=== PATIENT | male | born 1960 | race Caucasian/White ===

== ENCOUNTER 2016-04-12 12:09 | Emergency (ER) | payer MEDICARE, OTHER ==
[~2016-04-12] VITALS: Ht 162.6 cm; Wt 83.0 kg
[~2016-04-12 12:09] MED LIST: HYDR-3535 PO; XANA1TAB2 PO
[2016-04-12 12:13] VITALS: BP 97/73; PULSE 70; RESP 16; TEMP 97.4; O2SAT 97
[2016-04-12] MEDS ORDERED: CLIN1CAP6 PO (12:59)
--- NOTE | 2016-04-12 13:05 | PD ---
HPI Chief Complaint: Oral / Dental Pain or Problem Time Seen by Provider: 13:00 Travel History International Travel<30 days: No Contact w/Intl Traveler<30days: No Traveled to known affect area: No History of Present Illness HPI Patient is a 55-year-old male presenting with left upper dental pain. He states last evening he was chewing on a candy bar when he felt a sudden pain. It is not believed the tooth broke. Is a small amount of foul tasting discharge since. Denies any bleeding. Denies any subluxation. Denies masses, edema, difficulty swallowing or breathing. Denies fever. No attempts at palliation. PFSH Past Medical History Hx Anticoagulant Therapy: No Asthma: Yes Anxiety: Yes Cardiovascular Problems: Yes (htn on meds) Chemotherapy: No Cerebrovascular Accident: Yes Diabetes: No Diminished Hearing: No Endocrine: No GERD: Yes Hypertension: Yes Musculoskeletal: Yes (BACK INJURY/CHRONIC BACK PAIN) Respiratory: Yes (COPD) Immunizations Current: Yes Influenza Vaccination: No Past Surgical History Hysterectomy: No Other Surgery: Yes (right KNEE) Social History Alcohol Use: No Tobacco Use: No (quit 2014) Substance Use: No Allergies-Medications (Allergen,Severity, Reaction): Coded Allergies: Penicillin (Verified Allergy, Unknown, 04/12/16) Reported Meds & Prescriptions Reported Meds & Active Scripts Active Clindamycin (Clindamycin HCl) 300 Mg Cap 300 Mg PO Q6H 10 Days Reported Xanax (Alprazolam) 1 Mg Tab 1 Mg PO Q6H PRN Review of Systems HENT: Positive: Dental Difficulties, No: Sore Throat, Neck Stiffness, Neck Pain, Gingival Bleeding, Earache Physical Exam Narrative GENERAL: Well-developed and well-nourished adult male in no acute distress. SKIN: Warm and dry. Good turgor without tenting. HEAD: Normocephalic and atraumatic. EYES: PERRL bilaterally, 5mm. EOMI bilaterally. No injection or icterus present. No proptosis. Lids without edema or erythema. ENT: Tooth #2 has some caries but the tooth appears intact. There is some minor dental erythema and tenderness to palpation. No bleeding or purulence seen. No induration or fluctuance. Tooth is tender to percussion. Buccal mucosa pink and moist. Oropharynx free of erythema, tonsillar hypertrophy, masses, swelling, asymmetry and exudates. Uvula midline and airway patent. NECK: Supple, no meningeal signs. Trachea midline, no JVD. No cervical or facial lymphadenopathy. CARDIOVASCULAR: Regular rate and rhythm without murmurs, rubs, clicks or gallops. RESPIRATORY: Clear to auscultation bilaterally with symmetrical rise and fall, no distress or use of accessory muscles. NEUROLOGIC: CN II-XII grossly intact. Awake and alert. Motor grossly within normal limits. Normal speech. PSYCHIATRIC: Appropriate mood and affect; insight and judgment normal. Data Data Last Documented VS Vital Signs Date Time Temp Pulse Resp B/P Pulse Ox O2 Delivery O2 Flow Rate FiO2 04/12/16 12:13 97.4 70 16 97/73 97 MDM Medical Decision Making Medical Screen Exam Complete: Yes Emergency Medical Condition: Yes Differential Diagnosis Caries versus Periapical abscess versus cellulitis versus Tooth Fracture vs less likely Ludwigs Angina Narrative Course Patient is a 55-year-old male presenting with dental pain. Exam there is just erythema does report some bad taste in the mouth this could be early dental infection. The tooth is not subluxed or fracture. The patient has a prescription for prescription drug database for opioid narcotics should last until April 16 he tells me he is out early and asked for a refill. 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 He was given clindamycin for infection and recommended follow-up with dentist on Wednesday.See discharge paperwork for further instructions. The plan was discussed with the patient who acknowledged their understanding and agreement. Reinforced the follow-up with primary care is critically important. Patient instructed on emergent conditions that should prompt return to ED. Diagnosis Primary Impression: Dental infection Patient Instructions: Dental Abscess (ED), General Instructions Additional Instructions: Take medication as directed Use salt water gargles, Orajel, or other OTC products for topical pain relief Apply ice packs hourly as needed to help with swelling and pain Schedule with dentist [facility] for definitive treatment Return to the ED for any acute worsening of symptoms Med/Other Pt SpecificInfo: Prescription(s) given Scripts Clindamycin 300 Mg [id number] Mg PO Q6H 10 Days Prov:Dario Blanca MD 04/12/16 Disposition: 01 DISCHARGE HOME Condition: Stable Sabino Ray III Apr 12, 2016 13:05
== END 2016-04-12 13:11 | disposition home or self-care (01) ==
LOC: PHEFT 12:09
DX: K04.7 Periapical abscess without sinus (principal); I10 Essential (primary) hypertension; J44.9 Chronic obstructive pulmonary disease, unspecified
CPT/HCPCS: 99282

== ENCOUNTER 2016-05-19 10:48 | Emergency (ER) | payer MEDICARE, OTHER ==
[~2016-05-19] VITALS: Ht 165.1 cm; Wt 84.0 kg
[~2016-05-19 10:48] MED LIST changes: +CLIN1CAP6 PO; -HYDR-3535 PO
[2016-05-19 10:55] VITALS: BP 116/82; PULSE 69; RESP 16; TEMP 98.2; O2SAT 96
[2016-05-19] MEDS ORDERED: BACT800T5 PO (11:06)
[2016-05-19] MEDS ORDERED: IBUP-232 PO (11:06)
--- NOTE | 2016-05-19 11:07 | PD ---
HPI Chief Complaint: Skin Problem Time Seen by Provider: 10:59 Travel History International Travel<30 days: No Contact w/Intl Traveler<30days: No Traveled to known affect area: No History of Present Illness HPI Patient is a 55-year-old male who presents to emergency room with complaints of abscess to his right axilla. Patient reports that he was shaving 2 days ago, reports that he began to develop a ingrown hair which turned to infection to his right axilla. Reports that the abscess feels hard this time, reports increased pain to the area. Patient with no fevers or chills, no nausea or vomiting. Patient with no other complaints. Patient reports that tetanus is not up-to-date. PFSH Past Medical History Hx Anticoagulant Therapy: No Asthma: Yes Anxiety: Yes Cardiovascular Problems: Yes (htn on meds) Chemotherapy: No Cerebrovascular Accident: Yes Diabetes: No Diminished Hearing: No Endocrine: No GERD: Yes Hypertension: Yes Musculoskeletal: Yes (BACK INJURY/CHRONIC BACK PAIN) Respiratory: Yes (COPD) Immunizations Current: Yes Tetanus Vaccination: > 5 Years Influenza Vaccination: No Past Surgical History Hysterectomy: No Other Surgery: Yes (right KNEE) Social History Alcohol Use: No Tobacco Use: No (quit 2014) Substance Use: No Allergies-Medications (Allergen,Severity, Reaction): Coded Allergies: Penicillin (Verified Allergy, Unknown, 05/19/16) Reported Meds & Prescriptions Reported Meds & Active Scripts Active Ibuprofen 600 Mg Tab 600 Mg PO Q6H PRN Bactrim DS (Sulfamethoxazole-Trimethoprim) 800-160 Mg Tab 2 Tab PO BID Clindamycin (Clindamycin HCl) 300 Mg Cap 300 Mg PO Q6H 10 Days Reported Xanax (Alprazolam) 1 Mg Tab 1 Mg PO Q6H PRN Review of Systems General / Constitutional: No: Fever, Chills Eyes: No: Visual changes HENT: No: Headaches Cardiovascular: No: Chest Pain or Discomfort Respiratory: No: Shortness of Breath Gastrointestinal: No: Abdominal Pain Genitourinary: No: Dysuria Musculoskeletal: No: Pain Skin: Positive Other (abscess to right axilla), No Rash Neurologic: No: Weakness Psychiatric: No: Depression Endocrine: No: Polydipsia Hematologic/Lymphatic: No: Easy Bruising Physical Exam Narrative GENERAL: No acute distress, nontoxic, well appearing SKIN: Warm and dry. Patient with 0.5cm x 0.5cm non fluctuant abscess to right axilla with no area of fluctuance, no cellulitis, no drainage HEAD: Atraumatic. Normocephalic. ENT: No nasal bleeding or discharge. Mucous membranes pink and moist. NECK: Trachea midline. No JVD. CARDIOVASCULAR: Regular rate and rhythm. No murmur appreciated. RESPIRATORY: No accessory muscle use. Clear to auscultation. Breath sounds equal bilaterally. GASTROINTESTINAL: Abdomen soft, non-tender, nondistended. Hepatic and splenic margins not palpable. MUSCULOSKELETAL: No obvious deformities. No clubbing. No cyanosis. No edema. Data Data Last Documented VS Vital Signs Date Time Temp Pulse Resp B/P Pulse Ox O2 Delivery O2 Flow Rate FiO2 05/19/16 10:55 98.2 69 16 116/82 96 Orders Sulfamet-Trimeth Ds 800-160 Mg (Bactrim (05/19/16 11:15) Tetanus/Diphtheria Tox Adult (Tetanus/Di (05/19/16 11:15) Ibuprofen (Motrin) (05/19/16 11:15) MDM Medical Decision Making Medical Screen Exam Complete: Yes Emergency Medical Condition: Yes Interpretation(s) Vital Signs Date Time Temp Pulse Resp B/P Pulse Ox O2 Delivery O2 Flow Rate FiO2 05/19/16 10:55 98.2 69 16 116/82 96 Differential Diagnosis Abscess, swollen lymph node Narrative Course Patient is a 55-year-old male who presents to emergency room with complaints of abscess to his right axilla. Patient reports that he was shaving his armpits 2 days ago, reports that he noticed that he had a bump to his right arm yesterday. Reports that the "bump" feels harder and "hurts alot." On evaluation , patient has a small abscess to his right axilla, there is no area of induration or fluctuance and there is no drainage or cellulitis. Will treat patient with antibiotics. Understands need to apply warm compresses to abscess to allow it to come to a head. Tetanus is not up to date - will update it today. Patient instructed to return to the emergency room if 48 hours for reevaluation of symptoms. He will return to emergency room earlier if he develops any worsening or progressing signs of infection Diagnosis Primary Impression: Abscess Patient Instructions: General Instructions Additional Instructions: Apply warm compresses to area Return to the emergency room and 48 hours for re-evaluation of abscess Return to the emergency room if symptoms progress or worsen Med/Other Pt SpecificInfo: Prescription(s) given Scripts Ibuprofen 600 Mg [id number] Mg PO Q6H PRN (Pain/Inflammation) #40 TAB Ref 0 Prov:Jess Mccallum DO 05/19/16 Sulfamethoxazole-Trimethoprim (Bactrim DS)800-160 Mg Tab2 Tab PO BID #40 TAB Ref 0 Prov:Jess Mccallum DO 05/19/16 Disposition: 01 DISCHARGE HOME Condition: Stable Jess Mccallum DO May 19, 2016 11:07
[2016-05-19] MEDS ORDERED: IBUPROFEN 600 MG TAB PO ONE (11:15)
[2016-05-19] MEDS ORDERED: TETANUS/DIPHTHERIA TOXOID ADULT 0.5 ML VIAL IM ONE (11:15)
[2016-05-19] MEDS ORDERED: SULFAMETHOXAZOLE-TRIMETHOPRIM DS 800-160 MG TAB PO ONE (11:15)
== END 2016-05-19 11:24 | disposition home or self-care (01) ==
LOC: PHEFT 10:48
DX: L02.411 Cutaneous abscess of right axilla (principal); J45.909 Unspecified asthma, uncomplicated; I10 Essential (primary) hypertension; Z23 Encounter for immunization
CPT/HCPCS: 90471; 90714

== ENCOUNTER 2016-05-24 08:40 | Emergency (ER) | payer MEDICARE, OTHER ==
[~2016-05-24] VITALS: Ht 162.6 cm; Wt 81.8 kg
[~2016-05-24 08:40] MED LIST changes: +BACT800T5 PO; +IBUP-232 PO
[2016-05-24 08:54] VITALS: BP 120/81; PULSE 70; RESP 16; TEMP 97.7; O2SAT 99
[2016-05-24] MEDS ORDERED: BP MED (09:27)
[2016-05-24] MEDS ORDERED: TRAM50TA PO (09:30)
[2016-05-24] MEDS ORDERED: CLIN1CAP5 PO (09:30)
--- NOTE | 2016-05-24 09:31 | PD ---
HPI Chief Complaint: Allergic/Adverse Reaction Time Seen by Provider: 09:24 Travel History International Travel<30 days: No Contact w/Intl Traveler<30days: No Traveled to known affect area: No History of Present Illness HPI 55-year-old male seen in the emergency department on 05/19/16, started on Bactrim for right axillary abscess, here for evaluation because he states that the antibiotic is making him feel nauseous. He has not had any vomiting. No diarrhea. No rash. No tongue or lip swelling. No difficulty breathing or swallowing. The patient is requesting a change in antibiotic. He is also complaining of pain to his right axilla which is moderate, constant, worse with movement and palpation. PFSH Past Medical History Hx Anticoagulant Therapy: No Asthma: Yes Anxiety: Yes Cardiovascular Problems: Yes (htn on meds) Chemotherapy: No Cerebrovascular Accident: Yes (cva at age 24) Diabetes: No Diminished Hearing: No Endocrine: No GERD: Yes Hypertension: Yes Musculoskeletal: Yes (BACK INJURY/CHRONIC BACK PAIN) Respiratory: Yes (copd) Immunizations Current: Yes Tetanus Vaccination: < 5 Years Past Surgical History Hysterectomy: No Other Surgery: Yes (right KNEE) Social History Alcohol Use: No Tobacco Use: No (quit 2014) Substance Use: No Allergies-Medications (Allergen,Severity, Reaction): Coded Allergies: Penicillin (Verified Allergy, Unknown, 05/24/16) Reported Meds & Prescriptions Reported Meds & Active Scripts Active Tramadol (Tramadol HCl) 50 Mg Tab 50 Mg PO Q6H PRN Clindamycin (Clindamycin HCl) 150 Mg Cap 450 Mg PO Q6H 7 Days Reported [Bp Med] Xanax (Alprazolam) 1 Mg Tab 1 Mg PO Q6H PRN Review of Systems Except as stated in HPI: all other systems reviewed are Neg Physical Exam Narrative GENERAL: Well-developed, well-nourished, comfortable, no acute distress. SKIN: Right axilla with 3 areas of erythema, no warmth, mild induration, no fluctuance, no purulent drainage. ENT: Mucous membranes pink and moist. No tongue or lip swelling. No drooling or stridor. CARDIOVASCULAR: Regular rate and rhythm. No murmur appreciated. RESPIRATORY: No accessory muscle use. Clear to auscultation. Breath sounds equal bilaterally. GASTROINTESTINAL: Abdomen soft, non-tender, nondistended. MUSCULOSKELETAL: No obvious deformities. No clubbing. No cyanosis. No edema. NEUROLOGICAL: Awake and alert. No obvious cranial nerve deficits. Motor grossly within normal limits. Normal speech. PSYCHIATRIC: Appropriate mood and affect; insight and judgment normal. Data Data Last Documented VS Vital Signs Date Time Temp Pulse Resp B/P Pulse Ox O2 Delivery O2 Flow Rate FiO2 05/24/16 08:54 97.7 70 16 120/81 99 MDM Medical Decision Making Medical Screen Exam Complete: Yes Emergency Medical Condition: Yes Medical Record Reviewed: Yes Differential Diagnosis cellulitis, abscess Narrative Course Vital signs are within normal limits. This is a 55-year-old male who was seen in the emergency department 5 days ago for right axillary abscess/cellulitis and was started on Bactrim. The patient is having an adverse reaction to this medication which is making him feel nauseous. He is not having any signs or symptoms of an allergic reaction or anaphylaxis. Today there is a small area of induration with a few areas of erythema in his right axilla. There is no fluctuance. I do not believe that there is a drainable abscess. At this point my plan is to start him on a different medication. I will start him on clindamycin. PMD follow-up this week. He was informed on when to return to the emergency department. He verbalizes understanding and agreement with plan. Diagnosis Primary Impression: Cellulitis of right axilla Referrals: Primary Care Physician 3 days Additional Instructions: Follow-up with your primary care physician this week. Return to the emergency department for worsening symptoms or any other concerns. Scripts Tramadol 50 Mg Tab50 Mg PO Q6H PRN (PAIN) #10 TAB Ref 0 Prov:Stan Mendenhall MD 05/24/16 Clindamycin 150 Mg [id number] Mg PO Q6H 7 Days Ref 0 Prov:Stan Mendenhall MD 05/24/16 Disposition: 01 DISCHARGE HOME Condition: Stable Stan Mendenhall MD May 24, 2016 09:31
== END 2016-05-24 09:38 | disposition home or self-care (01) ==
LOC: PHEFT 08:40
DX: L03.111 Cellulitis of right axilla (principal)
CPT/HCPCS: 99283

== ENCOUNTER 2016-06-06 07:02 | Emergency (ER) | payer MEDICARE, OTHER ==
[~2016-06-06] VITALS: Ht 167.6 cm; Wt 82.0 kg
[~2016-06-06 07:02] MED LIST changes: -BACT800T5 PO; +BP MED; +CLIN1CAP5 PO; -CLIN1CAP6 PO; -IBUP-232 PO; +TRAM50TA PO
[2016-06-06 07:06] VITALS: BP 151/90; PULSE 65; RESP 15; TEMP 98; O2SAT 99
--- NOTE | 2016-06-06 07:23 | PD ---
HPI Chief Complaint: Respiratory Symptoms Time Seen by Provider: 07:16 Travel History International Travel<30 days: No Contact w/Intl Traveler<30days: No Traveled to known affect area: No History of Present Illness HPI 55-year-old male here for evaluation of nasal congestion, cough, and headache. The patient is concerned about possible mold exposure. He reports having these symptoms when he wakes up in the morning only when he sleeps in his bedroom. Cough is productive of greenish sputum. No hemoptysis. Headache is right-sided , severe, started when he woke up this morning. No fevers or chills. No neck pain or stiffness. No paresthesias or motor deficits. No photophobia. I evaluated the patient and 05/24/16 and diagnosed him with right axillary cellulitis which she states has resolved. PFSH Past Medical History Hx Anticoagulant Therapy: No Asthma: Yes Anxiety: Yes Cardiovascular Problems: Yes (HTN) Chemotherapy: No Cerebrovascular Accident: Yes (cva at age 24) Diabetes: No Diminished Hearing: No Endocrine: No GERD: Yes Hypertension: Yes Musculoskeletal: Yes (BACK INJURY/CHRONIC BACK PAIN) Respiratory: Yes (copd) Immunizations Current: Yes Past Surgical History Hysterectomy: No Other Surgery: Yes (right KNEE) Social History Alcohol Use: No Tobacco Use: No (quit 2014) Substance Use: No Allergies-Medications (Allergen,Severity, Reaction): Coded Allergies: Penicillin (Verified Allergy, Unknown, 05/24/16) Reported Meds & Prescriptions Reported Meds & Active Scripts Active Tramadol (Tramadol HCl) 50 Mg Tab 50 Mg PO Q6H PRN Clindamycin (Clindamycin HCl) 150 Mg Cap 450 Mg PO Q6H 7 Days Reported [Bp Med] Xanax (Alprazolam) 1 Mg Tab 1 Mg PO Q6H PRN Review of Systems Except as stated in HPI: all other systems reviewed are Neg Physical Exam Narrative GENERAL: Well-developed, well-nourished, comfortable, no acute distress. SKIN: Warm and dry. No rash. HEAD: Atraumatic. Normocephalic. EYES: Pupils equal, round, 3 mm, reactive to light. No scleral icterus. No injection or drainage. ENT: No nasal bleeding or discharge. Mucous membranes pink and moist. NECK: Trachea midline. No JVD. No nuchal rigidity. CARDIOVASCULAR: Regular rate and rhythm. No murmur appreciated. RESPIRATORY: No accessory muscle use. Clear to auscultation. Breath sounds equal bilaterally. GASTROINTESTINAL: Abdomen soft, non-tender, nondistended. MUSCULOSKELETAL: No obvious deformities. No clubbing. No cyanosis. No edema. NEUROLOGICAL: Awake and alert. No obvious cranial nerve deficits. Motor grossly within normal limits. Normal speech. No focal deficit. PSYCHIATRIC: Appropriate mood and affect; insight and judgment normal. Data Data Last Documented VS Vital Signs Date Time Temp Pulse Resp B/P Pulse Ox O2 Delivery O2 Flow Rate FiO2 06/06/16 07:28 18 98 Room Air 06/06/16 07:28 70 06/06/16 07:06 98.0 151/90 Orders Basic Metabolic Panel (Bmp) (06/06/16 07:20) Complete Blood Count With Diff (06/06/16 07:20) Iv Access Insert/Monitor (06/06/16 07:20) Ecg Monitoring (06/06/16 07:20) Oximetry (06/06/16 07:20) Sodium Chloride 0.9% Flush (Ns Flush) (06/06/16 07:30) Chest, Single Ap (06/06/16 ) Ct Brain W/O Iv Contrast(Rout) (06/06/16 ) Influenzae A/B Antigen (06/06/16 07:20) Metoclopramide Inj (Reglan Inj) (06/06/16 07:30) Ketorolac Inj (Toradol Inj) (06/06/16 07:30) Sodium Chlor 0.9% 1000 Ml Inj (Ns 1000 M (06/06/16 07:30) Labs Laboratory Tests Test 06/06/16 07:38 White Blood Count 4.9 TH/MM3 Red Blood Count 4.02 MIL/MM3 Hemoglobin 12.3 GM/DL Hematocrit 35.2 % Mean Corpuscular Volume 87.6 FL Mean Corpuscular Hemoglobin 30.5 PG Mean Corpuscular Hemoglobin 34.8 % Concent Red Cell Distribution Width 12.3 % Platelet Count 314 TH/MM3 Mean Platelet Volume 7.1 FL Neutrophils (%) (Auto) 44.1 % Lymphocytes (%) (Auto) 40.8 % Monocytes (%) (Auto) 10.2 % Eosinophils (%) (Auto) 4.0 % Basophils (%) (Auto) 0.9 % Neutrophils # (Auto) 2.1 TH/MM3 Lymphocytes # (Auto) 2.0 TH/MM3 Monocytes # (Auto) 0.5 TH/MM3 Eosinophils # (Auto) 0.2 TH/MM3 Basophils # (Auto) 0.0 TH/MM3 CBC Comment DIFF FINAL Differential Comment [facility] Medical Decision Making Medical Screen Exam Complete: Yes Emergency Medical Condition: Yes Medical Record Reviewed: Yes Differential Diagnosis Viral illness, URI, bronchitis, pneumonia, tension headache, cluster headache, SAH/meningitis/encephalitis unlikely Narrative Course Vital signs show heart rate 65, blood pressure 151/90, pulse ox 99% on room air , oral temp of 98F. CBC is unremarkable. Influenza is negative. Chest x-ray: Underinflation with atelectasis at the bases, otherwise no acute cardiopulmonary abnormality identified. CT head: CONCLUSION: Stable noncontrast head CT. No acute intracranial abnormality is identified. The patient was given a liter of normal saline IV, IV Reglan, and IV Toradol and is feeling much improved. There is no nuchal rigidity on exam. He states he would like to go home so he can get something to eat. He is stable for discharge home with outpatient follow-up with his primary care physician this week. I will start him on azithromycin for bronchitis. He was informed on when to return to the emergency department. He verbalizes understanding and agreement with plan. Diagnosis Primary Impression: Bronchitis Referrals: Primary Care Physician 3 days Additional Instructions: Follow-up with your primary care physician this week. Return to the emergency department for worsening symptoms or any other concerns. Scripts Azithromycin (Zithromax Z-Pardeep)250 Mg [id number] Mg PO DIRECTED #1 DSPK Ref 0 500 MG (2 tabs) day 1, then 1 tab days 2-5. Prov:Stan Mendenhall MD 06/06/16 Disposition: DISCHARGE HOME Condition: Stable Stan Mendenhall MD Jun 06, 2016 07:23
[2016-06-06 07:28] VITALS: RESP 18; O2SAT 98
[2016-06-06] MEDS ORDERED: SODIUM CHLORIDE 0.9% FLUSH 5 ML FLUSH IVF PRN (07:30)
[2016-06-06] MEDS ORDERED: METOCLOPRAMIDE HCL 10 MG/2 ML VIAL IV PUSH ONE (07:30)
[2016-06-06] MEDS ORDERED: SODIUM CHLOR 0.9% 1000 ML INJ 1,000 ML IV ONE (07:30)
[2016-06-06] MEDS ORDERED: KETOROLAC TROMETHAMINE 30 MG/ML (IVP) VIAL IV PUSH ONE (07:30)
--- NOTE | 2016-06-06 07:43 | RADRPT ---
EXAM DATE/TIME: 06/06/2016 07:33 [facility] COMPARISON: CHEST SINGLE AP, December 03, 2014, 3:12. INDICATIONS : Cough and shortness of breath. MEDICAL HISTORY : Hypertension. Stroke. Asthma. SURGICAL HISTORY : None. ENCOUNTER: Initial ACUITY: 3 days PAIN SCORE: 0/10 LOCATION: Bilateral chest FINDINGS: Underinflated AP view of the chest demonstrates a normal-sized cardiac silhouette. There is mild atel ectasis at the lung bases. No pleural effusion, airspace consolidation, or pneumothorax is identified . Bones and soft tissues demonstrate no acute finding. CONCLUSION: Underinflation with atelectasis at the bases. Otherwise, no acute cardiopulmonary abnormality is iden tified. Sabino Wiley MD on June 06, 2016 at 7:40 Board Certified Radiologist. This report was verified electronically.
[2016-06-06 07:52] LABS: AUTOMATED NEUTROPHIL # 2.1 TH/MM3 (1.8-7.7); BASOPHIL % 0.9 % (0.0-2.0); EOSINOPHIL # 0.2 TH/MM3 (0-0.4); HEMATOCRIT 35.2 % (39.0-51.0); HEMO FLAGS DIFF FINAL; LYMPH % 40.8 % (9.0-44.0); MEAN CELL VOLUME 87.6 FL (80.0-100.0); MEAN CORPUSCULAR HEMOGLOBIN 30.5 PG (27.0-34.0); MEAN CORPUSCULAR HGB CONC 34.8 % (32.0-36.0); MONO % 10.2 % (0.0-8.0); NEUT % 44.1 % (16.0-70.0); PLATELET COUNT 314 TH/MM3 (150-450); RED BLOOD COUNT 4.02 MIL/MM3 (4.50-5.90); RED CELL DISTRIBUTION WIDTH 12.3 % (11.6-17.2); WHITE BLOOD COUNT 4.9 TH/MM3 (4.0-11.0)
--- NOTE | 2016-06-06 08:00 | RADRPT ---
EXAM DATE/TIME: 06/06/2016 07:52 [facility] COMPARISON: CT BRAIN W/O CONTRAST, October 21, 2011, 18:12. INDICATIONS : Severe right-sided headache. RADIATION DOSE: 42.51 CTDIvol (mGy) MEDICAL HISTORY : Stroke. Hypertension. Chronic obstructive pulmonary disease. SURGICAL HISTORY : None. ENCOUNTER: Initial ACUITY: 1 day PAIN SCALE: 8/10 LOCATION: Right temporal TECHNIQUE: Multiple contiguous axial images were obtained of the head. Using automated exposure control and adj ustment of the mA and/or kV according to patient size, radiation dose was kept as low as reasonably a chievable to obtain optimal diagnostic quality images. FINDINGS: CEREBRUM: The ventricles are normal for age. No evidence of midline shift, mass lesion, hemorrhage or acute in farction. No extra-axial fluid collections are seen. POSTERIOR FOSSA: The cerebellum and brainstem are intact. The 4th ventricle is midline. The cerebellopontine angle i s unremarkable. EXTRACRANIAL: Visualized sinuses are clear. SKULL: The calvaria is intact. No evidence of skull fracture. CONCLUSION: Stable noncontrast head CT. No acute intracranial abnormality is identified. Sabino Wiley MD on June 06, 2016 at 7:56 Board Certified Radiologist. This report was verified electronically.
[2016-06-06] MEDS ORDERED: ZITHTAB PO (08:32)
== END 2016-06-06 09:17 | disposition home or self-care (01) ==
LOC: NEPC 07:02
DX: J40 Bronchitis, not specified as acute or chronic (principal); I10 Essential (primary) hypertension; J44.9 Chronic obstructive pulmonary disease, unspecified
CPT/HCPCS: 70450; 71010; 85025; 87804; 96374; 96375; 99284; J1885; J2765; J7030

== ENCOUNTER → 2016-08-11 | Outpatient (CLI) | payer MEDICARE, OTHER ==
[~2016-08-11] MED LIST changes: +B P MED; +BACT800T5 PO; +HYDR-3533 PO; +HYDR-3583 PO; +IBUP-232 PO; +OMEP20TA PO; +SILD20 PO; +ZITHTAB PO
--- NOTE | 2016-08-12 05:56 | EKG ---
Date Performed: 08/11/2016 Time Performed: 15:04:46 PTAGE: 56 years EKG: Sinus rhythm NORMAL ECG PREVIOUS TRACING : 11/11/2015 01.48 Compared to prior tracing no significant change DOCTOR: Dom Merida Interpretating Date/Time 08/12/2016 05:56:28
== END ==
LOC: HCAV 14:57
DX: Z00.00 Encounter for general adult medical examination without abnormal findings (principal)
CPT/HCPCS: 93005

== ENCOUNTER 2016-09-06 07:36 | Emergency (ER) | payer MEDICARE, OTHER ==
[~2016-09-06] VITALS: Ht 162.6 cm; Wt 79.0 kg
[~2016-09-06 07:36] MED LIST changes: -B P MED; -BACT800T5 PO; -HYDR-3533 PO; -HYDR-3583 PO; -IBUP-232 PO; -OMEP20TA PO; -SILD20 PO
[2016-09-06 07:39] VITALS: BP 122/86; PULSE 105; RESP 16; TEMP 98; O2SAT 97
[2016-09-06] MEDS ORDERED: OMEP20TA PO (07:48)
[2016-09-06] MEDS ORDERED: B P MED (07:48)
[2016-09-06] MEDS ORDERED: SILD20 PO (07:48)
[2016-09-06] MEDS ORDERED: ACETAMINOPHEN/HYDROcodone 325 MG/5 MG TAB PO ONE (08:00)
--- NOTE | 2016-09-06 08:00 | PD ---
HPI Chief Complaint: Cold / Flu Symptoms Time Seen by Provider: 07:49 Travel History International Travel<30 days: No Contact w/Intl Traveler<30days: No Traveled to known affect area: No History of Present Illness HPI STATES START OF HEADACHE, NAUSEA, VOMITING, SINCE HE STARTED USING [place]. UNSURE IF ITS MEDICATION OR PERHAPS A COLD LIKE THE FLU...DENIES FEVER/MYALGIAS ETC PFSH Past Medical History Hx Anticoagulant Therapy: No Asthma: Yes Anxiety: Yes Cardiovascular Problems: Yes (HTN) High Cholesterol: Yes Chemotherapy: No Cerebrovascular Accident: Yes (cva at age 24) Diabetes: No Diminished Hearing: No Endocrine: No GERD: Yes Hypertension: Yes Musculoskeletal: Yes (BACK INJURY/CHRONIC BACK PAIN) Respiratory: Yes (copd) Immunizations Current: Yes Influenza Vaccination: No ?: Not Past Surgical History Hysterectomy: No Other Surgery: Yes (right KNEE) Social History Alcohol Use: No Tobacco Use: No (quit 2014) Substance Use: No Allergies-Medications (Allergen,Severity, Reaction): Coded Allergies: Penicillin (Verified Allergy, Unknown, 09/06/16) Reported Meds & Prescriptions Reported Meds & Active Scripts Active Reported [B.P.med] 0 Omeprazole 20 Mg Tab 20 Mg PO DAILY Revatio (Sildenafil Citrate) 20 Mg Tab 20 Mg PO TID Xanax (Alprazolam) 1 Mg Tab 1 Mg PO TID PRN Review of Systems Except as stated in HPI: all other systems reviewed are Neg Physical Exam Narrative GENERAL: SKIN: Warm and dry. HEAD: Atraumatic. Normocephalic. EYES: Pupils equal and round. No scleral icterus. No injection or drainage. ENT: No nasal bleeding or discharge. Mucous membranes pink and moist. NECK: Trachea midline. No JVD. CARDIOVASCULAR: Regular rate and rhythm. RESPIRATORY: No accessory muscle use. Clear to auscultation. Breath sounds equal bilaterally. GASTROINTESTINAL: Abdomen soft, non-tender, nondistended. Hepatic and splenic margins not palpable. MUSCULOSKELETAL: Extremities without clubbing, cyanosis, or edema. No obvious deformities. NEUROLOGICAL: Awake and alert. No obvious cranial nerve deficits. Motor grossly within normal limits. Five out of 5 muscle strength in the arms and legs. Normal speech. PSYCHIATRIC: Appropriate mood and affect; insight and judgment normal. Data Data Last Documented VS Vital Signs Date Time Temp Pulse Resp B/P Pulse Ox O2 Delivery O2 Flow Rate FiO2 09/06/16 07:39 98.0 105 16 122/86 97 Orders Urinalysis - C+S If Indicated (09/06/16 07:54) Group A Rapid Strep Screen (09/06/16 07:54) Influenzae A/B Antigen (09/06/16 07:54) Chest, Single Ap (09/06/16 07:54) Acetamin-Hydrocod 325-5 Mg ([place] 5-325 (09/06/16 08:00) Ct Brain W/O Iv Contrast(Rout) (09/06/16 08:00) Strep Culture (Group A) (09/06/16 08:00) Labs Laboratory Tests Test 09/06/16 08:30 Urine Collection Type CLEAN CATCH Urine Color YELLOW Urine Turbidity CLEAR Urine pH 5.5 Urine Protein TRACE mg/dL Urine Glucose (UA) NEG mg/dL Urine Ketones NEG mg/dL Urine Occult Blood NEG Urine Nitrite NEG Urine Bilirubin NEG Urine Leukocyte Esterase NEG Urine Squamous Epithelial 0-5 /hpf Cells Microscopic Urinalysis Comment CULT NOT INDICATED MDM Medical Decision Making Medical Screen Exam Complete: Yes Emergency Medical Condition: Yes Medical Record Reviewed: Yes Differential Diagnosis MEDICATION REACTION, FLU/STREP ILLNESS Narrative Course SEE ABOVE, CT HEAD/CXR/FLU/STREP/UA WILL BE DONE TO EVAL, IF ALL NEGATIVE THEN MEDICATION REACTION IS MOST LIKELY Diagnosis Primary Impression: Medication adverse effect Qualified Code: T88.7XXA - Medication adverse effect, initial encounter Patient Instructions: General Instructions Disposition: 01 DISCHARGE HOME Condition: Stable Miah Echols MD Sep 06, 2016 07:59
--- NOTE | 2016-09-06 08:29 | RADHPO ---
EXAM DATE/TIME: 09/06/2016 08:09 [facility] COMPARISON: CT BRAIN W/O CONTRAST, June 06, 2016, 7:52. INDICATIONS : Dizziness and headache. RADIATION DOSE: 58.83 CTDIvol (mGy) MEDICAL HISTORY : Cerebrovascular disease. Chronic obstructive pulmonary disease. Hypertension. SURGICAL HISTORY : None. ENCOUNTER: Initial ACUITY: 2 days PAIN SCALE: 9/10 LOCATION: Bilateral cranial TECHNIQUE: Multiple contiguous axial images were obtained of the head. Using automated exposure control and adj ustment of the mA and/or kV according to patient size, radiation dose was kept as low as reasonably a chievable to obtain optimal diagnostic quality images. FINDINGS: CEREBRUM: The ventricles are normal for age. No evidence of midline shift, mass lesion, hemorrhage or acute in farction. No extra-axial fluid collections are seen. POSTERIOR FOSSA: The cerebellum and brainstem are intact. The 4th ventricle is midline. The cerebellopontine angle i s unremarkable. EXTRACRANIAL: The visualized portion of the orbits is intact. SKULL: The calvaria is intact. No evidence of skull fracture. CONCLUSION: No acute intracranial findings. Ramsey Cantu MD on September 06, 2016 at 8:24 Board Certified Radiologist. This report was verified electronically.
--- NOTE | 2016-09-06 08:36 | RADHPO ---
EXAM DATE/TIME: 09/06/2016 08:23 [facility] COMPARISON: CHEST SINGLE AP, June 06, 2016, 7:33. INDICATIONS : Cough MEDICAL HISTORY : Chronic obstructive pulmonary disease. Stroke. SURGICAL HISTORY : None. ENCOUNTER: Initial ACUITY: 3 days PAIN SCORE: 0/10 LOCATION: Bilateral chest FINDINGS: Single AP view of the chest. The lungs are clear. Cardiomediastinal silhouette within normal limits. No evidence of pleural effusion or pneumothorax. CONCLUSION: No acute cardiopulmonary disease identified. Ramsey Cantu MD on September 06, 2016 at 8:34 Board Certified Radiologist. This report was verified electronically.
[2016-09-06 08:50] LABS: BLOOD, URINE NEG (NEG); GLUCOSE,URINE NEG (NEG); KETONE, URINE NEG (NEG); NITRITE,URINE NEG (NEG); PH, URINE 5.5 (5.0-8.5)
[2016-09-06 08:52] LABS: METHOD OF COLLECTION CLEAN CATCH; URINE COLOR YELLOW (YELLW/STRAW)
[2016-09-06 08:54] LABS: COMMENT (UR) CULT NOT INDICATED; CULTURE IF INDICATED CULT NOT INDICATED; SQUAMOUS EPITHELIAL CELL URINE 0-5 /hpf (0-5)
[2016-09-06 08:56] VITALS: RESP 18
[2016-09-06 09:04] VITALS: BP 120/59
== END 2016-09-06 09:05 | disposition home or self-care (01) ==
LOC: PHED 07:36
DX: T88.7XXA Unspecified adverse effect of drug or medicament, initial encounter (principal); R51 Headache; R11.2 Nausea with vomiting, unspecified; E78.00 Pure hypercholesterolemia, unspecified; I10 Essential (primary) hypertension; Z87.09 Personal history of other diseases of the respiratory system; Z86.59 Personal history of other mental and behavioral disorders; Z86.79 Personal history of other diseases of the circulatory system; Z87.19 Personal history of other diseases of the digestive system; Z87.39 Personal history of other diseases of the musculoskeletal system and connective tissue; Z87.891 Personal history of nicotine dependence
CPT/HCPCS: 70450; 71010; 81001; 87081; 87804; 87880

== ENCOUNTER 2016-09-07 13:09 | Emergency (ER) | payer MEDICARE, OTHER ==
[~2016-09-07 13:09] MED LIST changes: +B P MED; +OMEP20TA PO; +SILD20 PO
[2016-09-07 13:16] VITALS: BP 117/81; PULSE 87; RESP 15; TEMP 98.2; O2SAT 95
--- NOTE | 2016-09-07 13:19 | PD ---
Physical Exam Time Seen by Provider: 13:18 Narrative 56 y/o male here with nausea, dizziness, h/a, sore throat. Seen at [facility] yesterday and it was felt that this was an adverse reaction to Viagra. Symptoms persist which prompted reevaluation. Vital signs reviewed. Seen at triage desk. Awaiting bed placement. Data Data Last Documented VS Vital Signs Date Time Temp Pulse Resp B/P Pulse Ox O2 Delivery O2 Flow Rate FiO2 09/07/16 13:16 98.2 87 15 117/81 95 MDM Medical Record Reviewed: Yes Supervised Visit with ALEXANDER: Ovi Dean Sep 07, 2016 13:19
== END 2016-09-07 15:59 | disposition left against medical advice (07) ==
LOC: NED 13:09
DX: R42 Dizziness and giddiness (principal); Z53.21 Procedure and treatment not carried out due to patient leaving prior to being seen by health care provider
CPT/HCPCS: 99281

== ENCOUNTER 2016-09-29 09:31 | Emergency (ER) | payer MEDICARE, OTHER ==
[~2016-09-29] VITALS: Ht 175.3 cm; Wt 85.0 kg
[~2016-09-29 09:31] MED LIST changes: -BP MED; -CLIN1CAP5 PO; -TRAM50TA PO; -ZITHTAB PO
[2016-09-29 09:38] VITALS: BP 93/65; PULSE 100; RESP 22; TEMP 97.6; O2SAT 97
[2016-09-29] MEDS ORDERED: HYDR-3533 PO (10:03)
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
[2016-09-29] MEDS ORDERED: IBUP-232 PO (10:11)
== END 2016-09-29 10:33 | disposition home or self-care (01) ==
LOC: NEPK 09:31
DX: M17.11 Unilateral primary osteoarthritis, right knee (principal); I10 Essential (primary) hypertension; E78.00 Pure hypercholesterolemia, unspecified; Z86.79 Personal history of other diseases of the circulatory system; Z87.09 Personal history of other diseases of the respiratory system; Z86.59 Personal history of other mental and behavioral disorders; Z87.19 Personal history of other diseases of the digestive system; Z87.39 Personal history of other diseases of the musculoskeletal system and connective tissue
CPT/HCPCS: 99283

== ENCOUNTER 2016-10-01 02:41 | Emergency (ER) | payer MEDICARE, OTHER ==
[~2016-10-01] VITALS: Ht 162.6 cm; Wt 80.0 kg
[~2016-10-01 02:41] MED LIST changes: +HYDR-3533 PO; +IBUP-232 PO
[2016-10-01 02:48] VITALS: BP 130/98; PULSE 87; RESP 12; TEMP 97.5; O2SAT 99
[2016-10-01] MEDS ORDERED: HYDR-3583 PO (03:09)
[2016-10-01] MEDS ORDERED: BACT800T5 PO (04:01)
--- NOTE | 2016-10-01 04:02 | PD ---
HPI Chief Complaint: Skin Problem Time Seen by Provider: 02:57 Travel History International Travel<30 days: No Contact w/Intl Traveler<30days: No Traveled to known affect area: No History of Present Illness HPI The patient is a 56-year-old male, frequent visitor to this emergency department who complains of an abscess below the right exam for 2 days. There is been no drainage. PFSH Past Medical History Hx Anticoagulant Therapy: No Asthma: Yes Anxiety: Yes Cardiovascular Problems: Yes (HTN) High Cholesterol: Yes Chemotherapy: No Cerebrovascular Accident: Yes Diabetes: No Diminished Hearing: No Endocrine: No GERD: Yes Hypertension: Yes Musculoskeletal: Yes (BACK INJURY/CHRONIC BACK PAIN) Respiratory: Yes Immunizations Current: Yes Past Surgical History Hysterectomy: No Other Surgery: Yes Social History Alcohol Use: No Tobacco Use: No Substance Use: No Allergies-Medications (Allergen,Severity, Reaction): Coded Allergies: Penicillin (Verified Allergy, Unknown, 10/01/16) Reported Meds & Prescriptions Reported Meds & Active Scripts Active Ibuprofen 600 Mg Tab 600 Mg PO Q6H PRN Reported Hydrocodone-Acetaminophen 10-325 mg Tab 1 Tab PO Q4H PRN [B.P.med] 0 Omeprazole 20 Mg Tab 20 Mg PO DAILY Revatio (Sildenafil Citrate) 20 Mg Tab 20 Mg PO TID Xanax (Alprazolam) 1 Mg Tab 1 Mg PO TID PRN Review of Systems Except as stated in HPI: all other systems reviewed are Neg Physical Exam Narrative GENERAL: Well-nourished, well-developed patient in slight apparent distress with his abscess below the right axilla. His vital signs are normal except for blood pressure 130/98. SKIN: Focused skin assessment warm/dry. There is a 2 cm diameter abscess below the right axilla and not in the right a gallop. There is no evidence of hidradenitis suppurativa in the axilla. HEAD: Normocephalic. EYES: No scleral icterus. No injection or drainage. NECK: Supple, trachea midline. No JVD or lymphadenopathy. CARDIOVASCULAR: Regular rate and rhythm without murmurs, gallops, or rubs. RESPIRATORY: Breath sounds equal bilaterally. No accessory muscle use. GASTROINTESTINAL: Abdomen soft, non-tender, nondistended. MUSCULOSKELETAL: No cyanosis, or edema. BACK: Nontender without obvious deformity. No CVA tenderness. Data Data Last Documented VS Vital Signs Date Time Temp Pulse Resp B/P Pulse Ox O2 Delivery O2 Flow Rate FiO2 10/01/16 02:57 20 10/01/16 02:48 97.5 87 130/98 99 MDM Medical Decision Making Medical Screen Exam Complete: Yes Emergency Medical Condition: Yes Medical Record Reviewed: Yes Differential Diagnosis Hidradenitis suppurativa, skin abscess, cellulitis, foreign body in skin Narrative Course The patient has a skin abscess under the right axilla. There is no skin rash consistent with hidradenitis suppurativa. It is well below the axilla and not in the axilla. Procedures Procedure Narrative The area was prepped with Betadine. Under sterile technique, a field block was done in the area. A #11 blade was used to incise into the abscess cavity and some pus was recovered. The abscess cavity was cleaned with peroxide. The patient tolerated the procedure well. EKG Prior to Arrival: No EKG Not Completed: EKG Not Medically Necessary Diagnosis Primary Impression: Abscess Additional Impression: Encounter for incision and drainage procedure Additional Instructions: The antibiotic is one tablet twice daily for 7 days. Because this is likely staph, he will be given a physical therapy excuse for 5 days. If worse, please return to the emergency department. Med/Other Pt SpecificInfo: Prescription(s) given Scripts Sulfamethoxazole-Trimethoprim (Bactrim DS)800-160 Mg Tab1 Tab PO BID #20 TAB Ref 0 Prov:Fuad Carmen MD 10/01/16 Disposition: 01 DISCHARGE HOME Condition: Stable Fuad Carmen MD Oct 01, 2016 04:02
[2016-10-01 04:13] VITALS: BP 125/77
== END 2016-10-01 04:15 | disposition home or self-care (01) ==
LOC: PHED 02:41
DX: L02.411 Cutaneous abscess of right axilla (principal)
CPT/HCPCS: 10060